=== PATIENT | male | born 1990 | race Caucasian/White ===

== ENCOUNTER 2021-07-22 18:11 | Emergency (ER) | payer SELFPAY ==
[~2021-07-22] VITALS: Ht 177.8 cm; Wt 62.6 kg
[2021-07-22 18:40] VITALS: BP 128/81
--- NOTE | 2021-07-22 18:54 | PHYS DOC ---
Past Medical History Past Medical History: No Pertinent History Past Surgical History: No Surgical History Smoking Status: Former Smoker Alcohol Use: Occasionally Drug Use: None General Adult EDM: Chief Complaint: PAIN CONTROL HPI: HPI: 31-year-old male, homeless, no other significant medical history, presents with bilateral foot pain and burning. Denies trauma however patient states he has been walking for several days and only has 1 pair wet socks and wet shoes given the recent rain. No fever, chills. Review of Systems: Review of Systems: Constitutional: Denies fever or chills. [] Eyes: Denies change in visual acuity. [] HENT: Denies nasal congestion or sore throat. [] Respiratory: Denies cough or shortness of breath. [] Cardiovascular: Denies chest pain or edema. [] GI: Denies abdominal pain, nausea, vomiting, bloody stools or diarrhea. [] : Denies dysuria. [] Musculoskeletal: Denies back pain. + Bilateral foot pain Integument: Denies rash. [] Neurologic: Denies headache, focal weakness or sensory changes. [] Endocrine: Denies polyuria or polydipsia. [] Lymphatic: Denies swollen glands. [] Psychiatric: Denies depression or anxiety. [] Heart Score: C/O Chest Pain: No Risk Factors: Risk Factors: DM, Current or recent (<one month) smoker, HTN, HLP, family history of CAD, obesity. Risk Scores: Score 0 - 3: 2.5% MACE over next 6 weeks - Discharge Home Score 4 - 6: 20.3% MACE over next 6 weeks - Admit for Clinical Observation Score 7 - 10: 72.7% MACE over next 6 weeks - Early Invasive Strategies Current Medications: Current Medications Medications (Trade) Dose Ordered Sig/Sharad Start Time Stop Time Status Last Admin Dose Admin Gabapentin (Neurontin) 300 mg 1X ONCE 07/22/21 19:00 07/22/21 19:01 UNV Ibuprofen (Motrin) 400 mg 1X ONCE 07/22/21 19:00 07/22/21 19:01 UNV Physical Exam: PE: Constitutional: Well developed, well nourished, no acute distress, non-toxic appearance. [] HENT: Normocephalic, atraumatic, bilateral external ears normal, oropharynx moist, no oral exudates, nose normal. [] Eyes: PERRLA, EOMI, conjunctiva normal, no discharge. [] Neck: Normal range of motion, no tenderness, supple, no stridor. [] Cardiovascular:Heart rate regular rhythm, no murmur [] Lungs & Thorax: Bilateral breath sounds clear to auscultation [] Abdomen: Bowel sounds normal, soft, no tenderness, no masses, no pulsatile masses. [] Skin: Warm, dry, no erythema, no rash. [] Back: No tenderness, no CVA tenderness. [] Extremities: + Bilateral feet palmar side pale and mottled, no open wound, bleeding or discharge, no cyanosis, no clubbing, ROM intact, no edema. [] Neurologic: Alert and oriented X 3, normal motor function, normal sensory function, no focal deficits noted. [] Psychologic: Affect normal, judgement normal, mood normal. [] EKG: EKG: [] Radiology/Procedures: Radiology/Procedures: [] Course & Med Decision Making: Course & Med Decision Making Pertinent Labs and Imaging studies reviewed. (See chart for details) Additional Social History: PMD from non-affiliated facility. Patient Lives at home. Family History: Non-pertinent to today's complaint. Nursing Notes Reviewed Previous Medical Records requested via [facility]: Reviewed by me. EMERGENCY DEPARTMENT COURSE/ MEDICAL DECISION MAKING: I examined the patient, evaluated and addressed patient's chief complaint. High suspicion for trench foot. Low suspicion for cellulitis. The patient was treated with ibuprofen, gabapentin, Tdap, new dry socks. On re-assessment, patient feels much better. The patient understands that todays Emergency Department evaluation does not represent a comprehensive medical workup, and it is impossible to diagnose all possible illnesses from a single Emergency Department visit. The patient verbalized understanding that it is absolutely necessary to have follow-up with regular primary care physician within 1-2 days for more detailed workup and continued exam. I explained the findings and plan to the patient, who expressed verbal understanding and agreed with plan for discharge and follow up. The patient was given after care instructions and welcomed to return to the ED for re-evaluation in 8-12 hours, especially for any new or worsening symptoms. Patient's blood pressure was elevated (>120/80) but appears stable without evidence of end organ damage, malignant hypertension, hypertensive emergency or urgency. The patient was counseled about the risks of hypertension and urged to pursue outpatient monitoring and therapy within a week with their primary care physician. The patient was stable at the time of discharge. DIAGNOSTIC IMPRESSION: 1. Trench foot DISPOSITION: Disposition: Discharge Home. Condition: Improved Follow-Up: PMD Prescriptions: Ibuprofen, Tylenol Return to the Emergency Department for new or worsening symptoms. Dragon Disclaimer: Dragon Disclaimer: This electronic medical record was generated, in whole or in part, using a voice recognition dictation system. Departure Departure Impression: Primary Impression: Trench foot Disposition: 01 HOME / SELF CARE / HOMELESS Condition: STABLE Scripts Ibuprofen (IBUPROFEN) 400 Mg Tablet 400 MG PO PRN Q6HRS PRN for INFLAMMATION, #30 TAB Prov: MIGUELINA RICHARDS MD 07/22/21 Acetaminophen (ACETAMINOPHEN) 325 Mg Tablet 2 TAB PO PRN Q4-6HRS PRN for pain or fever, #60 TAB 0 Refills Prov: MIGUELINA RICHARDS MD 07/22/21 MIGUELINA RICHARDS MD July 22, 2021 18:54
[2021-07-22] MEDS ORDERED: DIPHTH,PERTUSS(ACELL),TET TOX 0.5 ML DISP.SYRIN. VAX IM ONE (19:00)
[2021-07-22] MEDS ORDERED: IBUPROFEN 400 MG TABLET. PO ONE (19:00)
[2021-07-22] MEDS ORDERED: GABAPENTIN 300 MG CAPSULE. PO ONE (19:00)
[2021-07-22] MEDS ORDERED: ACET325T21 PO (19:40)
[2021-07-22] MEDS ORDERED: IBUP-1027 PO (19:40)
== END 2021-07-22 19:55 | disposition home or self-care (01) ==
LOC: ER 18:11
DX: T69.022A Immersion foot, left foot, initial encounter (principal); T69.021A Immersion foot, right foot, initial encounter; Z87.891 Personal history of nicotine dependence; Z59.00 Homelessness unspecified
CPT/HCPCS: 99283